=== PATIENT | male | born 1930 | race Caucasian/White ===

== ENCOUNTER → 2016-05-15 | Outpatient (CLI) | payer MEDICARE, BC | LOC: HEART 5 07:06 | DX: I25.10 Atherosclerotic heart disease of native coronary artery without angina pectoris (principal); E78.2 Mixed hyperlipidemia; I10 Essential (primary) hypertension; R06.02 Shortness of breath; R07.9 Chest pain, unspecified | CPT/HCPCS: 78452; A9502; J2785 ==

== ENCOUNTER 2016-08-09 08:24 | Emergency (ER) | payer MEDICARE, BC | END 2016-08-09 09:15 | disposition home or self-care (01) | LOC: ER1 08:24 | DX: S80.862A Insect bite (nonvenomous), left lower leg, initial encounter (principal); W57.XXXA Bitten or stung by nonvenomous insect and other nonvenomous arthropods, initial encounter | CPT/HCPCS: 99281 ==

== ENCOUNTER 2020-05-10 13:04 | Emergency (ER) | payer MEDICARE, BC ==
[~2020-05-10 13:04] MED LIST: AUGMENTIN 875-1 EACH PO; BACITRAYCIN PLU28 GM TP; ENULOSE10 GM/15 M PO; KEFLEX CAP 500500 MG PO; LORTAB 5-325 M1 EACH PO; VIBRAMYCIN100 MG PO
== END 2020-05-10 16:58 | disposition home or self-care (01) ==
LOC: EDBD 13:04 → ER1 13:04
DX: K59.00 Constipation, unspecified (principal); R41.3 Other amnesia; I10 Essential (primary) hypertension; Z90.49 Acquired absence of other specified parts of digestive tract; Z90.89 Acquired absence of other organs
CPT/HCPCS: 99283

== ENCOUNTER 2020-05-16 17:12 | Emergency (ER) | payer MEDICARE, BC ==
[2020-05-16] MEDS ORDERED: COLACE100 MG PO (19:25)
[2020-05-16] MEDS ORDERED: MIRALAX17 GM PO (19:25)
== END 2020-05-16 19:50 | disposition home or self-care (01) ==
LOC: ER1 17:12 → EDBD 17:12 → ER1 19:50
DX: K59.00 Constipation, unspecified (principal); I10 Essential (primary) hypertension; Z90.49 Acquired absence of other specified parts of digestive tract
CPT/HCPCS: 99283

== ENCOUNTER → 2020-06-22 | Outpatient (CLI) | payer MEDICARE, BC ==
[~2020-06-22] MED LIST changes: +ASPIRIN CHEWABL81 MG PO; +COLACE100 MG PO; +MIRALAX17 GM PO; +QUINAPRIL HCL20 MG PO
== END ==
LOC: CT 07:34
DX: R27.0 Ataxia, unspecified (principal); G93.40 Encephalopathy, unspecified; R26.9 Unspecified abnormalities of gait and mobility; R51.9 Headache, unspecified; R41.3 Other amnesia; G93.89 Other specified disorders of brain
CPT/HCPCS: 36415; 70470; 82565; 84520; Q9966

== ENCOUNTER 2020-07-11 08:47 | Inpatient (IN) | payer MEDICARE, BC ==
[~2020-07-11] VITALS: Ht 172.7 cm; Wt 76.2 kg
[~2020-07-11 08:47] MED LIST changes: -ASPIRIN CHEWABL81 MG PO; -QUINAPRIL HCL20 MG PO
[2020-07-11 09:44] LABS: HEMOGLOBIN 13.6 gm/dl (14.0-17.5); RED BLOOD COUNT 4.76 M/UL (4.20-5.50)
[2020-07-11 10:11] LABS: BUN/CREATININE RATIO 24 (0-10)
[2020-07-11] MEDS ORDERED: ASPIRIN CHEWABL81 MG PO (16:42)
[2020-07-11] MEDS ORDERED: QUINAPRIL HCL20 MG PO (16:42)
--- NOTE | 2020-07-11 17:56 | NUR ---
HEARD NOISE, ENTERED ROOM, PT SITTING ON FLOOR WITH SILVERWARE AND SOME FOOD FROM SUPPER TRAY ON FLOOR. PT STATES WAS SITTING ON SIDE OF BED AND BECAME DIZZY. DR. BEE PASSED BY ROOM AT TIME AND WITNESSED THE INCIDENT AND SAID SHE RAN TO HIM BUT HE SLID OFF EDGE OF BED ONTO FLOOR. CALLED AND WAS NOTIFIED OF INCIDENT.
[2020-07-12 02:54] LABS: HEMOGLOBIN 12.3 gm/dl (14.0-17.5); RED BLOOD COUNT 4.55 M/UL (4.20-5.50); WHITE BLOOD COUNT 7.9 K/UL (4.5-11.0)
[2020-07-13 06:03] LABS: HEMOGLOBIN 12.3 gm/dl (14.0-17.5); RED BLOOD COUNT 4.36 M/UL (4.20-5.50)
== END 2020-07-19 16:03 | DRG 69 ==
LOC: ER1 08:47 → MED SURG 4 13:07 → CDU 13:07 → MED SURG 4 15:03
PROVIDERS: Physician Assistant Medical; Student in an Organized Health Care Education/Training Program; ADMIT Internal Medicine
PROC: B24BZZ4 Ultrasonography of Heart with Aorta, Transesophageal (ICD-10-PCS; principal; 2020-07-12)
DX: G45.0 Vertebro-basilar artery syndrome (principal); N17.9 Acute kidney failure, unspecified; I47.1 Supraventricular tachycardia; F01.50 Vascular dementia, unspecified severity, without behavioral disturbance, psychotic disturbance, mood disturbance, and anxiety; I12.9 Hypertensive chronic kidney disease with stage 1 through stage 4 chronic kidney disease, or unspecified chronic kidney disease; Z20.822 Contact with and (suspected) exposure to COVID-19; E78.5 Hyperlipidemia, unspecified; M19.90 Unspecified osteoarthritis, unspecified site; I67.89 Other cerebrovascular disease; R53.81 Other malaise; I25.10 Atherosclerotic heart disease of native coronary artery without angina pectoris; R26.0 Ataxic gait; N18.30 Chronic kidney disease, stage 3 unspecified; Z85.46 Personal history of malignant neoplasm of prostate; Z87.81 Personal history of (healed) traumatic fracture; Z90.49 Acquired absence of other specified parts of digestive tract; Z79.82 Long term (current) use of aspirin; Z91.81 History of falling
CPT/HCPCS: ECHO; 36415; 70450; 70496; 70498; 70551; 72125; 80048; 80053; 81001; 82550; 82553; 83605; 83735; 83874; 83880; 84100; 84484; 85025; 85027; 85610; 85730; 93005; 93306; 97110-GP-CQ; 97116-GP-CQ; 97161; 97166; 97530; 97530-GP-CQ; 99284; G0378; J0360; J7030; J7040; Q9967; U0002